=== PATIENT | male | born 2000 | race Caucasian/White ===

== ENCOUNTER 2022-11-09 19:34 | Emergency (ER) | payer OTHER ==
[~2022-11-09] VITALS: Ht 185.4 cm; Wt 88.9 kg
[2022-11-09 20:10] VITALS: BP 144/71; PULSE 70; RESP 16; TEMP 98.2; O2SAT 97
[2022-11-10] MEDS ORDERED: NAPR-54 PO (02:24)
== END 2022-11-10 02:40 | disposition home or self-care (01) ==
LOC: MED 19:34
DX: T17.298A Other foreign object in pharynx causing other injury, initial encounter (principal); Z79.899 Other long term (current) drug therapy
CPT/HCPCS: 81025; 96372; 99282; 99285

== ENCOUNTER 2023-03-14 23:52 | Emergency (ER) | payer OTHER ==
[~2023-03-14] VITALS: Ht 185.4 cm; Wt 88.5 kg
[~2023-03-14 23:52] MED LIST: NAPR-54 PO
[2023-03-15 00:33] VITALS: BP 118/77; PULSE 88; RESP 18; TEMP 99.2; O2SAT 96
[2023-03-15 02:25] LABS: FLU A ANTIGEN negative (NEGATIVE); FLU B ANTIGEN NEGATIVE (NEGATIVE)
[2023-03-15 02:49] LABS: APPEARANCE,URINE CLEAR (CLEAR); BILIRUBIN,URINE NEGATIVE (NEGATIVE); BLOOD, URINE NEGATIVE (NEGATIVE); COLOR,URINE YELLOW (YELLOW); LEUKOCYTE ESTERASE ,URINE NEGATIVE (NEGATIVE); NITRITE, URINE NEGATIVE (NEGATIVE); PROTEIN,URINE NEGATIVE (NEGATIVE); UGLUCOSE NEGATIVE (NEGATIVE); UROBILINOGEN,URINE 0.2 EU/dL (0.2 - 1)
[2023-03-15] MEDS ORDERED: BENZ100C6 PO (03:07)
[2023-03-15] MEDS ORDERED: DEXT118S25 PO (03:07)
[2023-03-15] MEDS ORDERED: ACET-2619 PO (03:07)
[2023-03-15] MEDS ORDERED: SUD30 PO (03:07)
[2023-03-15] MEDS ORDERED: IBUP-2213 PO (03:07)
== END 2023-03-15 03:20 | disposition home or self-care (01) ==
LOC: MED 23:52
DX: B34.9 Viral infection, unspecified (principal); Z20.822 Contact with and (suspected) exposure to COVID-19; Z79.899 Other long term (current) drug therapy; Z79.1 Long term (current) use of non-steroidal anti-inflammatories (NSAID)
CPT/HCPCS: 71046; 81003; 87081; 87426; 87804; 99284; Q0092